=== PATIENT | male | born 2000 | race African-American/Black ===

== ENCOUNTER 2018-08-19 04:00 | Emergency (ER) | payer MEDICAID ==
[~2018-08-19] VITALS: Ht 175.3 cm; Wt 68.0 kg
[2018-08-19 06:52] VITALS: BP 125/69
== END 2018-08-19 06:54 | disposition home or self-care (01) ==
LOC: ER 04:00
DX: J45.901 Unspecified asthma with (acute) exacerbation (principal)
CPT/HCPCS: 99283

== ENCOUNTER 2018-11-28 04:31 | Emergency (ER) | payer MEDICAID ==
[~2018-11-28] VITALS: Ht 177.8 cm; Wt 9.0 kg
[2018-11-28 04:57] VITALS: BP 127/85
[2018-11-28] MEDS ORDERED: PREDNISONE 20MG TABLET PO ONE (05:00)
[2018-11-28] MEDS ORDERED: IPRATROPIUM/ALBUTEROL 0.5-3(2.5)MG/3ML NEB HHN ONE (05:00)
== END 2018-11-28 06:03 | disposition left against medical advice (07) ==
LOC: ER 04:31
DX: J45.901 Unspecified asthma with (acute) exacerbation (principal)
CPT/HCPCS: 99283; J7512

== ENCOUNTER 2019-06-03 13:51 | Emergency (ER) | payer MEDICAID ==
[~2019-06-03] VITALS: Ht 175.3 cm; Wt 61.0 kg
[2019-06-03 14:43] VITALS: BP 133/78
[2019-06-03] MEDS ORDERED: ALBUTEROL (0.083%) 2.5MG/3ML NEB HHN ONE ×2 (16:45→17:30)
[2019-06-03] MEDS ORDERED: METHYLPREDNISOLONE SOD SUCC 125 MG/2 ML VIAL IM ONE (16:45)
== END 2019-06-03 18:29 | disposition home or self-care (01) ==
LOC: ER 13:51
DX: J45.901 Unspecified asthma with (acute) exacerbation (principal)
CPT/HCPCS: 71045; 94640; 96372; 99284; J2930; J7611; Z7610

== ENCOUNTER 2019-06-23 02:35 | Emergency (ER) | payer MEDICAID ==
[~2019-06-23] VITALS: Ht 177.8 cm; Wt 69.0 kg
[2019-06-23] MEDS ORDERED: CLINDAMYCIN HCL 150MG CAPSULE PO STA (03:14)
[2019-06-23] MEDS ORDERED: DEXAMETHASONE 0.5MG/5ML ORAL SYR PO ONE (03:15)
[2019-06-23] MEDS ORDERED: DEXAMETHASONE 10 MG/ML VIAL PO SCH (03:45)
[2019-06-23 04:06] VITALS: BP 117/76
[2019-06-23] MEDS ORDERED: CLINDAMYCIN HCL 150MG CAPSULE PO SCH (06:00)
== END 2019-06-23 04:08 | disposition home or self-care (01) ==
LOC: ER 02:35
DX: J36 Peritonsillar abscess (principal); J45.909 Unspecified asthma, uncomplicated
CPT/HCPCS: 99283; J1100; J8540

== ENCOUNTER 2019-07-17 03:03 | Emergency (ER) | payer MEDICAID ==
[~2019-07-17] VITALS: Ht 177.8 cm; Wt 75.0 kg
[2019-07-17 04:19] VITALS: BP 122/53
== END 2019-07-17 04:32 | disposition home or self-care (01) ==
LOC: ER 03:03
DX: J45.901 Unspecified asthma with (acute) exacerbation (principal); R06.02 Shortness of breath; Z87.09 Personal history of other diseases of the respiratory system
CPT/HCPCS: 99283

== ENCOUNTER 2020-01-18 23:20 | Emergency (ER) | payer MEDICAID ==
[~2020-01-18] VITALS: Ht 175.3 cm; Wt 68.0 kg
[2020-01-18 23:36] VITALS: BP 117/70
== END 2020-01-19 02:14 | disposition left against medical advice (07) ==
LOC: ER 23:20
DX: Z53.21 Procedure and treatment not carried out due to patient leaving prior to being seen by health care provider (principal)

== ENCOUNTER 2020-05-22 09:03 | Emergency (ER) | payer MEDICAID ==
[~2020-05-22] VITALS: Ht 177.8 cm; Wt 65.9 kg
[2020-05-22 09:06] VITALS: BP 123/78
== END 2020-05-22 09:56 | disposition home or self-care (01) ==
LOC: ER 09:03
DX: J45.909 Unspecified asthma, uncomplicated (principal)
CPT/HCPCS: 99283

== ENCOUNTER 2020-06-12 19:28 | Emergency (ER) | payer MEDICAID ==
[~2020-06-12] VITALS: Ht 177.8 cm; Wt 66.0 kg
[2020-06-12 20:38] VITALS: BP 110/71
== END 2020-06-13 01:52 | disposition home or self-care (01) ==
LOC: ER 19:28
DX: Z76.0 Encounter for issue of repeat prescription (principal); J45.909 Unspecified asthma, uncomplicated
CPT/HCPCS: 99283

== ENCOUNTER 2020-06-23 10:12 | Emergency (ER) | payer MEDICAID ==
[~2020-06-23] VITALS: Ht 175.3 cm; Wt 67.0 kg
[2020-06-23 11:27] VITALS: BP 110/87
[2020-06-27 08:11] LABS: NEISSERIA GONORRHOEAE NAA Negative (Negative)
== END 2020-06-23 11:13 | disposition home or self-care (01) ==
LOC: ER 10:24
DX: N48.89 Other specified disorders of penis (principal); J45.909 Unspecified asthma, uncomplicated
CPT/HCPCS: 86694; 86695; 86696; 87491; 87591; 99283

== ENCOUNTER 2020-06-25 17:53 | Emergency (ER) | payer MEDICAID ==
[~2020-06-25] VITALS: Ht 175.3 cm; Wt 65.7 kg
[2020-06-25 18:06] VITALS: BP 108/80
[2020-06-25 20:39] LABS: CLARITY URINE CLEAR (CLEAR); COLOR URINE YELLOW (YELLOW); KETONES URINE NEGATIVE (NEGATIVE); LEUKOCYTE ESTERASE URINE NEGATIVE (NEGATIVE); NITRITE URINE NEGATIVE (NEGATIVE); OCCULT BLOOD URINE NEGATIVE (NEGATIVE); PH URINE 5.5 (4.5-8.0); PROTEIN URINE NEGATIVE (NEGATIVE); SPECIFIC GRAVITY URINE 1.035 (1.005-1.030)
[2020-06-25] MEDS ORDERED: ACYCLOVIR 200MG CAPSULE PO NR (21:15)
== END 2020-06-25 21:15 | disposition home or self-care (01) ==
LOC: ER 17:53
DX: A60.00 Herpesviral infection of urogenital system, unspecified (principal); J45.909 Unspecified asthma, uncomplicated
CPT/HCPCS: 81003; 87591; 99283

== ENCOUNTER 2020-09-19 21:47 | Emergency (ER) | payer MEDICAID ==
[~2020-09-19] VITALS: Ht 175.3 cm; Wt 66.0 kg
[2020-09-19 23:07] VITALS: BP 104/61
== END 2020-09-19 23:08 | disposition home or self-care (01) ==
LOC: ER 21:47
DX: Z76.0 Encounter for issue of repeat prescription (principal); J45.909 Unspecified asthma, uncomplicated
CPT/HCPCS: 99283

== ENCOUNTER 2020-10-06 00:56 | Emergency (ER) | payer MEDICAID ==
[~2020-10-06] VITALS: Ht 175.3 cm; Wt 68.0 kg
[2020-10-06] MEDS ORDERED: IPRATROPIUM BROMIDE (0.02%) 0.5MG/2.5ML NEB HHN STA (01:27)
[2020-10-06] MEDS ORDERED: PREDNISONE 20MG TABLET PO STA (01:27)
[2020-10-06] MEDS ORDERED: ALBUTEROL (0.083%) 2.5MG/3ML NEB HHN STA (01:27)
[2020-10-06 02:55] VITALS: BP 121/76
== END 2020-10-06 02:58 | disposition home or self-care (01) ==
LOC: ER 00:56
DX: J45.901 Unspecified asthma with (acute) exacerbation (principal); F12.10 Cannabis abuse, uncomplicated
CPT/HCPCS: 71045; 94640; 99283; J7512; Z7610

== ENCOUNTER 2020-12-12 01:38 | Emergency (ER) | payer MEDICAID ==
[~2020-12-12] VITALS: Ht 175.3 cm; Wt 61.0 kg
[2020-12-12 01:43] VITALS: BP 108/69
[2020-12-12] MEDS ORDERED: ALBU90AE INH (02:04)
== END 2020-12-12 02:37 | disposition home or self-care (01) ==
LOC: ER 01:38
DX: Z76.0 Encounter for issue of repeat prescription (principal); J45.909 Unspecified asthma, uncomplicated
CPT/HCPCS: 99283

== ENCOUNTER 2021-07-14 21:29 | Emergency (ER) | payer MEDICAID ==
[~2021-07-14] VITALS: Ht 175.3 cm; Wt 64.5 kg
[~2021-07-14 21:29] MED LIST: ALBU90AE INH
[2021-07-14] MEDS ORDERED: IBUP-2029 MT (22:12)
[2021-07-14] MEDS ORDERED: ALBU18HF2 IH (22:12)
[2021-07-14] MEDS ORDERED: AMOX-494 MT (22:12)
[2021-07-14] MEDS ORDERED: ACETAMINOPHEN 325MG TABLET PO ONE (22:15)
[2021-07-14] MEDS ORDERED: IBUPROFEN 600MG TABLET PO ONE (22:15)
[2021-07-14] MEDS ORDERED: AMOXICILLIN 500 MG CAPSULE PO ONE (22:15)
[2021-07-14 22:30] VITALS: BP 120/79
== END 2021-07-14 22:44 | disposition home or self-care (01) ==
LOC: ER 21:29
DX: J02.9 Acute pharyngitis, unspecified (principal); J45.909 Unspecified asthma, uncomplicated; F12.10 Cannabis abuse, uncomplicated; Z79.899 Other long term (current) drug therapy
CPT/HCPCS: 99284

== ENCOUNTER 2021-09-28 22:17 | Emergency (ER) | payer MEDICAID ==
[~2021-09-28] VITALS: Ht 175.3 cm; Wt 66.0 kg
[~2021-09-28 22:17] MED LIST changes: +ALBU18HF2 IH; +AMOX-494 MT; +IBUP-2029 MT; +P20 MT
[2021-09-28 22:29] VITALS: BP 124/77
[2021-09-28] MEDS ORDERED: ALBU6.7H9 INH (23:10)
== END 2021-09-28 23:24 | disposition home or self-care (01) ==
LOC: ER 22:17
DX: J45.909 Unspecified asthma, uncomplicated (principal); Z76.0 Encounter for issue of repeat prescription
CPT/HCPCS: 99281

== ENCOUNTER 2021-11-09 09:21 | Emergency (ER) | payer MEDICAID ==
[~2021-11-09] VITALS: Ht 177.8 cm; Wt 63.0 kg
[~2021-11-09 09:21] MED LIST changes: +ALBU6.7H9 INH
[2021-11-09] MEDS ORDERED: LIDOCAINE HCL/EPINEPHRINE 1%-EPI 1:100,000 20 ML VIAL INFIL ONE (10:00)
[2021-11-09] MEDS ORDERED: TETANUS, DIPHTHERIA, PERTUSSIS VAC/PF 0.5ML (>10YR OLD) IM ONE (10:00)
[2021-11-09] MEDS ORDERED: HYDROCODONE/ACETAMINOPHEN 5/325MG TABLET PO ONE (10:00)
[2021-11-09] MEDS ORDERED: BACITRACIN ZINC OINT UDPKT TOP ONE (10:00)
[2021-11-09] MEDS ORDERED: CEPH500C2 MT (11:36)
[2021-11-09] MEDS ORDERED: ALBU6.7H9 INH (11:48)
[2021-11-09 11:53] VITALS: BP 106/86
== END 2021-11-09 11:55 | disposition home or self-care (01) ==
LOC: ER 09:21
DX: S21.112A Laceration without foreign body of left front wall of thorax without penetration into thoracic cavity, initial encounter (principal); S61.412A Laceration without foreign body of left hand, initial encounter; J45.909 Unspecified asthma, uncomplicated; X99.1XXA Assault by knife, initial encounter; Y93.9 Activity, unspecified; Y92.9 Unspecified place or not applicable
CPT/HCPCS: 12002; 71101; 73130; 90471; 90715; 99284; A4217; J3490; Z7610; 99285

== ENCOUNTER 2021-11-27 08:04 | Emergency (ER) | payer MEDICAID ==
[~2021-11-27] VITALS: Ht 175.3 cm; Wt 65.0 kg
[~2021-11-27 08:04] MED LIST changes: +CEPH500C2 MT
[2021-11-27 08:12] VITALS: BP 119/81
[2021-11-27] MEDS ORDERED: ALBU6.7H9 INH (08:21)
== END 2021-11-27 08:29 | disposition home or self-care (01) ==
LOC: ER 08:16
DX: Z76.0 Encounter for issue of repeat prescription (principal); J45.909 Unspecified asthma, uncomplicated
CPT/HCPCS: 99283

== ENCOUNTER 2023-11-30 15:50 | Emergency (ER) | payer MEDICAID ==
[~2023-11-30] VITALS: Ht 185.4 cm; Wt 68.0 kg
[~2023-11-30 15:50] MED LIST changes: +ALBU6.7H3 INH; -ALBU6.7H9 INH
[2023-11-30 16:08] VITALS: O2SAT 99
[2023-11-30] MEDS ORDERED: DOXY100C5 MT (18:27)
[2023-11-30] MEDS ORDERED: METR-167 MT (18:27)
[2023-11-30 18:33] LABS: CLARITY URINE CLOUDY (CLEAR); COLOR URINE YELLOW (YELLOW); GLUCOSE URINE NEGATIVE (NEGATIVE); KETONES URINE TRACE (NEGATIVE); LEUKOCYTE ESTERASE URINE 2+ (NEGATIVE); NITRITE URINE NEGATIVE (NEGATIVE); OCCULT BLOOD URINE NEGATIVE (NEGATIVE); PROTEIN URINE NEGATIVE (NEGATIVE); SPECIFIC GRAVITY URINE 1.024 (1.005-1.030); UROBILINOGEN URINE 0.2 E.U./dL (0.2-1.0)
[2023-11-30] MEDS: LIDOCAINE HCL 1% 20ML VIAL (Pyxis) INJ INFIL ONE (18:56)
[2023-11-30] MEDS: PENICILLIN G BENZATHINE 2,400,000 UNITS/4ML SYR IM ONE (18:56)
[2023-11-30] MEDS: CEFTRIAXONE SODIUM 500MG VIAL IM ONE (18:56)
[2023-11-30 19:02] LABS: BACTERIA URINE 2+; RBC URINE 0-2 /hpf (0-2); SQUAMOUS EPITHELIAL CELL URINE FEW /lpf (RARE/1+)
[2023-11-30 19:06] VITALS: BP 118/78; PULSE 81; RESP 18; TEMP 98.5
[2023-12-03 04:09] LABS: CHLAMYDIA TRACHOMATIS NAA Positive (Negative); NEISSERIA GONORRHOEAE NAA Negative (Negative)
== END 2023-11-30 19:30 | disposition home or self-care (01) ==
LOC: ER 15:50
DX: A64 Unspecified sexually transmitted disease (principal); J45.909 Unspecified asthma, uncomplicated; F12.10 Cannabis abuse, uncomplicated; Z79.899 Other long term (current) drug therapy
CPT/HCPCS: 87491; 87591; 81003; 96372; 99284; J0696; J3490; J0561; Z7610 ×2

== ENCOUNTER 2024-03-02 15:05 | Emergency (ER) | payer MEDICAID ==
[~2024-03-02] VITALS: Ht 175.3 cm; Wt 59.0 kg
[~2024-03-02 15:05] MED LIST changes: +DOXY100C5 MT; +METR-167 MT
[2024-03-02 15:10] VITALS: O2SAT 98
[2024-03-02] MEDS ORDERED: AMOX1TAB16 MT (17:10)
[2024-03-02] MEDS: AMOXICILLIN/POTASSIUM CLAVULANATE 875/125MG TAB PO ONE (17:25)
[2024-03-02] MEDS: KETOROLAC 30MG/ML VIAL IM ONE (17:25)
[2024-03-02] MEDS: DEXAMETHASONE 10 MG/ML VIAL PO ONE (17:30)
[2024-03-02 17:36] VITALS: BP 112/73; PULSE 54; RESP 18; TEMP 98.4
== END 2024-03-02 17:40 | disposition home or self-care (01) ==
LOC: ER 15:05
DX: J36 Peritonsillar abscess (principal); J45.909 Unspecified asthma, uncomplicated; Z79.899 Other long term (current) drug therapy
CPT/HCPCS: 99285; 93976; 76870; 96372; J1100; J1885